=== PATIENT | male | born 1945 | race Caucasian/White ===

== ENCOUNTER 2022-05-08 23:38 | Emergency (ER) | payer MEDICARE, OTHER ==
[2022-05-09] MEDS ORDERED: cloNIDine 0.1 MG TAB ONE (00:15)
[2022-05-09 00:19] LABS: #Eosinphils 0.3 10x3/uL (0.0-0.5); #Monocytes 0.7 10x3/uL (0.0-1.1); #Neutrophils 4.2 10x3/uL (1.5-8.4); %Basophils 0.2 % (0.0-2.0); %Eosinophils 3.2 % (0.0-6.0); %Lymphocytes 38.7 % (18.0-47.0); %Monocytes 8.3 % (0.0-10.0); %Neutrophils 49.4 % (40.0-75.0); Hemoglobin 16.6 g/dL (13.5-17.5); Mean Corpuscular HGB CONC 33.1 g/dL (32.0-36.0); Mean Corpuscular Hemoglobin 28.9 pg (27.0-33.0); Mean Corpuscular Volume 87.1 fl (81.2-95.1); Mean Platelet Volume 11.9 fl (7.4-10.4); Platelet Count 184 10x3/uL (150-450); RBC Distribution Width 13.6 % (11.5-14.5); Red Blood Cell (RBC) Count 5.75 10x6/uL (4.32-5.72); White Blood Cell (WBC) Count 8.5 10x3/uL (3.5-10.5)
[2022-05-09 00:48] LABS: ALT (SGPT) 18 U/L (8-55); AST (SGOT) 19 U/L (5-34); Albumin 4.7 g/dL (3.4-4.8); Alkaline Phosphatase 113 U/L (40-110); Anion Gap 18 mmol/L (10-20); BUN (Urea Nitrogen) 19 mg/dL (8.4-25.7); Bilirubin, Total 2.2 mg/dL (0.2-1.2); Calc. Creatinine Clearance 0 mL/min (70-130); Calcium 9.8 mg/dL (7.8-10.44); Carbon Dioxide 21 mmol/L (23-31); Chloride 107 mmol/L (98-107); Estimated GFR 62; Globulin 2.7 g/dL (2.4-3.5); Glucose 113 mg/dL (83-110); Potassium 4.9 mmol/L (3.5-5.1); Protein, Total 7.4 g/dL (5.8-8.1); Sodium 141 mmol/L (136-145)
== END 2022-05-09 02:21 | disposition home or self-care (01) ==
LOC: CSHERS 23:38
DX: I10 Essential (primary) hypertension (principal); R07.9 Chest pain, unspecified; E11.9 Type 2 diabetes mellitus without complications; Z79.84 Long term (current) use of oral hypoglycemic drugs; Z79.899 Other long term (current) drug therapy
CPT/HCPCS: 71045; 80053; 83880; 84484; 85025; 93005

== ENCOUNTER → 2022-06-02 | Day surgery (SDC) | payer MEDICARE, OTHER ==
[~2022-06-02] MED LIST: Lidocaine 1% (PF) 30 ML VIAL ONE; PROPOFOL 200 MG/20 ML VIAL ONE
== END ==
LOC: CSHSDC 06:43
PROVIDERS: ATTEND Specialist
DX: I34.0 Nonrheumatic mitral (valve) insufficiency (principal); I48.3 Typical atrial flutter; I25.10 Atherosclerotic heart disease of native coronary artery without angina pectoris; I11.0 Hypertensive heart disease with heart failure; I50.32 Chronic diastolic (congestive) heart failure; E78.2 Mixed hyperlipidemia; E11.9 Type 2 diabetes mellitus without complications; Z88.8 Allergy status to other drugs, medicaments and biological substances; Z79.82 Long term (current) use of aspirin; Z95.5 Presence of coronary angioplasty implant and graft; Z79.84 Long term (current) use of oral hypoglycemic drugs; Z79.899 Other long term (current) drug therapy; Z86.711 Personal history of pulmonary embolism
CPT/HCPCS: 92960; 93005; 93010; 93312; J2001; J2704

== ENCOUNTER 2024-07-29 11:09 | Inpatient (IN) | payer MEDICARE, OTHER ==
[2024-07-29 12:02] LABS: #Basophils Less than 0.03 10x3/uL (0.0-0.2); #Eosinophils Less than 0.03 10x3/uL (0.0-0.5); #Monocytes 0.26 10x3/uL (0.0-1.1); #Neutrophils 7.63 10x3/uL (1.5-8.4); %Basophils 0.1 % (0.0-2.0); %Eosinophils 0.2 % (0.0-6.0); %Lymphocytes 12.7 % (18.0-47.0); %Monocytes 2.9 % (0.0-10.0); %Neutrophils 83.8 % (40.0-75.0); Hematocrit 50.2 % (38.8-50.0); Hemoglobin 16.5 g/dL (13.5-17.5); Mean Corpuscular HGB CONC 32.9 g/dL (32.0-36.0); Mean Corpuscular Hemoglobin 29.1 pg (27.0-33.0); Mean Corpuscular Volume 88.5 fL (81.2-95.1); Mean Platelet Volume 11.3 fL (7.4-10.4); Platelet Count 162 10x3/uL (150-450); RBC Distribution Width 13.4 % (11.5-14.5); Red Blood Cell (RBC) Count 5.67 10x6/uL (4.32-5.72); White Blood Cell (WBC) Count 9.1 10x3/uL (3.5-10.5)
[2024-07-29 12:31] LABS: INR-International Normal Ratio 1.1; PTT 28.3 sec (22.0-33.0); Prothrombin Time 11.4 sec (9.5-12.1)
[2024-07-29 12:36] LABS: ALT (SGPT) 20 U/L (8-55); AST (SGOT) 16 U/L (5-34); Albumin 4.3 g/dL (3.4-4.8); Alkaline Phosphatase 72 U/L (40-110); Anion Gap 15 mmol/L (10-20); BUN (Urea Nitrogen) 23 mg/dL (8.4-25.7); Bilirubin, Total 1.3 mg/dL (0.2-1.2); Calc. Creatinine Clearance 0 mL/min (70-130); Calcium 10.1 mg/dL (7.8-10.44); Carbon Dioxide 24 mmol/L (23-31); Chloride 107 mmol/L (98-107); Estimated GFR 57; Globulin 3.5 g/dL (2.4-3.5); Glucose 178 mg/dL (83-110); Lipase 29 U/L (8-78); Magnesium 2.1 mg/dL (1.6-2.6); Potassium 4.2 mmol/L (3.5-5.1); Protein, Total 7.8 g/dL (5.8-8.1); Sodium 142 mmol/L (136-145)
[2024-07-29 12:39] LABS: Troponin I Less than 0.010 ng/mL (< 0.028)
[2024-07-29] MEDS ORDERED: Dextrose 50% Abboject 50 ML SYRINGE SLOW IVP PRN (13:18)
[2024-07-29] MEDS ORDERED: Senokot S 8.6-50 MG TAB PO PRN (13:18)
[2024-07-29] MEDS ORDERED: Dextrose 5% in Water 1,000 ML IV PRN (13:18)
[2024-07-29] MEDS ORDERED: Insulin Regular, Human 100 UNIT/ML 10 ML VIAL SC PRN (13:18)
[2024-07-29] MEDS ORDERED: Glucagon 1 MG/ML KIT IM PRN (13:18)
[2024-07-29 14:56] VITALS: BMI 30.4
[2024-07-29] MEDS: Acetaminophen 325 MG TAB PO PRN (19:45)
[2024-07-29] MEDS: Rosuvastatin 10 MG TAB PO SCH (20:59)
[2024-07-29] MEDS: Famotidine 20 MG TAB PO SCH (21:01)
[2024-07-29] MEDS: Ranolazine ER 500 MG TAB PO SCH (21:01)
[2024-07-29] MEDS: Enoxaparin 100 MG (1 mL) SYRINGE SC SCH (21:01)
[2024-07-30] MEDS: Valsartan 80 MG TAB PO SCH (08:17)
[2024-07-31 04:43] LABS: #Eosinophils 0.32 10x3/uL (0.0-0.5); #Monocytes 0.64 10x3/uL (0.0-1.1); #Neutrophils 3.91 10x3/uL (1.5-8.4); %Basophils 0.3 % (0.0-2.0); %Eosinophils 4.1 % (0.0-6.0); %Lymphocytes 36.4 % (18.0-47.0); %Monocytes 8.3 % (0.0-10.0); %Neutrophils 50.5 % (40.0-75.0); Hematocrit 44.6 % (38.8-50.0); Hemoglobin 15.2 g/dL (13.5-17.5); Mean Corpuscular HGB CONC 34.1 g/dL (32.0-36.0); Mean Platelet Volume 11.7 fL (7.4-10.4); Platelet Count 170 10x3/uL (150-450); RBC Distribution Width 13.8 % (11.5-14.5); Red Blood Cell (RBC) Count 5.07 10x6/uL (4.32-5.72); White Blood Cell (WBC) Count 7.74 10x3/uL (3.5-10.5)
[2024-07-31 04:54] LABS: Anion Gap 13 mmol/L (10-20); BUN (Urea Nitrogen) 22 mg/dL (8.4-25.7); Calc. Creatinine Clearance 68 mL/min (70-130); Calcium 9.3 mg/dL (7.8-10.44); Carbon Dioxide 26 mmol/L (23-31); Chloride 107 mmol/L (98-107); Estimated GFR 60; Glucose 110 mg/dL (83-110); Potassium 4.5 mmol/L (3.5-5.1); Sodium 141 mmol/L (136-145)
[2024-07-31 05:19] LABS: #Basophils 0.02 10x3/uL (0.0-0.2)
[2024-07-31] MEDS: Sodium Chloride 0.9% 1,000 ML IV SCH ×2 (09:35→18:00)
[2024-07-31] MEDS ORDERED: Lidocaine 1% (PF) 30 ML VIAL ONE (09:59)
[2024-07-31] MEDS ORDERED: CEFAZOLIN 1 GM VIAL ONE ×2 (09:59→10:00)
[2024-07-31] MEDS ORDERED: fentaNYL 50 mcg/mL 1 mL Vial ONE (09:59)
[2024-07-31] MEDS ORDERED: Gentamicin 80 MG/2 ML VIAL ONE (09:59)
[2024-07-31] MEDS ORDERED: Midazolam HCl 2 mg/2 ml Vial ONE ×2 (09:59→11:14)
[2024-07-31] MEDS ORDERED: Atropine Sulfate 1 mg/1 ml Vial ONE (11:09)
[2024-07-31] MEDS ORDERED: Iopamidol 300 61% 100 ML VIAL FS ONE (13:30)
[2024-07-31] MEDS: Sodium Chloride 0.9% 250 ML IV SCH (17:00)
[2024-07-31] MEDS: Ondansetron PF 4 MG/2 ML Vial IVP PRN (17:57)
[2024-08-01] MEDS: Apixaban 5 MG TAB PO SCH (09:04)
[2024-08-01] MEDS: Clopidogrel Bisulfate 75 MG TAB PO SCH (09:04)
[2024-08-01] MEDS: Cefadroxil Hydrate 500 mg/5 ml Suspenion PO SCH (10:13)
[2024-08-01 11:10] VITALS: BP 110/62; TEMP 97.8
== END 2024-08-01 11:08 | disposition home or self-care (01) | DRG 243 ==
LOC: CSHERS 11:09 → CSHTELE 13:17
PROVIDERS: ADMIT Hospitalist; ATTEND Hospitalist
PROC: 0JH606Z Insertion of Pacemaker, Dual Chamber into Chest Subcutaneous Tissue and Fascia, Open Approach (ICD-10-PCS; principal; 2024-07-29)
PROC: 02H63JZ Insertion of Pacemaker Lead into Right Atrium, Percutaneous Approach (ICD-10-PCS; 2024-07-29)
PROC: 02HK3JZ Insertion of Pacemaker Lead into Right Ventricle, Percutaneous Approach (ICD-10-PCS; 2024-07-29)
PROC: 0JPT02Z Removal of Monitoring Device from Trunk Subcutaneous Tissue and Fascia, Open Approach (ICD-10-PCS; 2024-07-29)
DX: I44.2 Atrioventricular block, complete (principal); I50.32 Chronic diastolic (congestive) heart failure; I49.5 Sick sinus syndrome; I11.0 Hypertensive heart disease with heart failure; E78.5 Hyperlipidemia, unspecified; E11.9 Type 2 diabetes mellitus without complications; I48.0 Paroxysmal atrial fibrillation; I95.9 Hypotension, unspecified; I45.9 Conduction disorder, unspecified; I25.10 Atherosclerotic heart disease of native coronary artery without angina pectoris; Z79.899 Other long term (current) drug therapy; Z79.01 Long term (current) use of anticoagulants; Z86.711 Personal history of pulmonary embolism; Z95.0 Presence of cardiac pacemaker; Z98.890 Other specified postprocedural states; Z79.02 Long term (current) use of antithrombotics/antiplatelets
CPT/HCPCS: 33208; 33286; 36415; 36416; 70450; 71045; 80048; 80053; 83690; 83735; 84443; 84484; 85025; 85610; 85730; 93005; 93010; 99152; 99153; C1785; C1898; J0461; J0690; J1580; J1650; J2250; J2405; J3010; J7030; Q9967